=== PATIENT | female | born 1950 | race Caucasian/White ===

== ENCOUNTER 2016-11-25 11:27 | Outpatient (CLI) | payer MEDICAID, MEDICARE ==
[2016-11-25 20:23] LABS: ALBUMIN/GLOBULIN RATIO 1.6 (1.0-2.2); BILIRUBIN,TOTAL 1.3 mg/dL (0.2-1.0); BUN - BLOOD UREA NITROGEN 21 mg/dL (6-20); CALCIUM 9.4 mg/dL (8.5-10.3); CARBON DIOXIDE - CO2 27 mmol/L (21-32); CHLORIDE 103 mmol/L (101-111); CHOLESTEROL 278 mg/dL; CREATININE 0.8 mg/dL (0.4-1.0); GFR - MDRD 72 (>89); GLUCOSE 100 mg/dL (70-100); HDL CHOLESTEROL 56 mg/dL; LDL/HDL RATIO 3.7 (<4.4); POTASSIUM 4.2 mmol/L (3.5-5.0); SODIUM 139 mmol/L (135-145); TOTAL PROTEIN 7.1 g/dL (6.7-8.2); TRIGLYCERIDES 74 mg/dL; VLDL CHOLESTEROL 15 mg/dL
== END 2016-11-25 11:28 | disposition home or self-care (01) ==
LOC: LAB.N 11:27
PROVIDERS: ATTEND Family Medicine
DX: E78.5 Hyperlipidemia, unspecified (principal)
CPT/HCPCS: 36415; 80053; 80061

== ENCOUNTER 2016-12-23 16:22 | Outpatient (CLI) | payer MEDICARE, OTHER ==
--- NOTE | 2016-12-24 01:27 | Ultrasound Report ---
EXAM: ANKLE-BRACHIAL INDEX EXAM DATE: 12/23/2016 05:44 PM. CLINICAL HISTORY: Nicotine dependent/cold feet. COMPARISON: None. TECHNIQUE: Ankle-brachial index calculated. FINDINGS: Right and left brachial pressures are 127 and 111 respectively. Right and left posterior tibial pressures are 124 and 129 respectively. Right and left ankle-brachial index is 0.98 and 1.16. IMPRESSION: 1. Right ankle-brachial index of 0.98. 2. Left ankle-brachial index of 1.16. [facility] Referring Provider Line: [phone] SITE ID: [id number]
--- NOTE | 2016-12-26 09:10 | CT Report ---
EXAM CT LUNG SCREEN EXAM DATE: 12/23/2016 04:52 PM. HISTORY: 66-year-old smoker. Nicotine dependent. Cold feet. COMPARISON: None. TECHNIQUE: CT examination of the entire thorax without contrast was performed using low-dose techniqu e. Thin section coronal, axial, sagittal and MIP axial images were obtained. In accordance with CT protocol optimization, one or more of the following dose reduction techniques w ere utilized for this exam: automated exposure control, adjustment of mA and/or KV based on patient s ize, or use of iterative reconstructive technique. FINDINGS: Nodules: Right upper lobe: None. Right middle lobe: None. Right lower lobe: None. Left upper lobe: None. Left lower lobe: None. Emphysema: Mild emphysematous changes. Pleura: Unremarkable. Aorta: Normal in caliber. Minimal calcified atheromatous plaque. Mediastinum: The visualized thyroid gland is unremarkable. No enlarged mediastinal or hilar lymph nod es. Heart size is normal. Coronary Calcifications: Mild to moderate degree of calcified coronary artery plaque. Other Findings: Linear bibasilar scar/atelectasis. Included portions of the liver, gallbladder, spleen, adrenals, pancreas, and kidneys are unremarkable . Abdominal aortic calcified atheromatous plaque. Degenerative changes of the thoracic spine. Dextroscoliosis of the thoracic spine. IMPRESSION: Lung-RADS ASSESSMENT CATEGORY: 1 - negative Probability of malignancy: Less than 1%. RECOMMENDATION: Continued annual screening with low-dose CT in 12 months. [facility] Referring Provider Line: [phone] SITE ID: [id number]
== END 2016-12-23 16:23 | disposition home or self-care (01) ==
LOC: DI 16:22
PROVIDERS: ATTEND Physician Assistant Medical
DX: Z12.2 Encounter for screening for malignant neoplasm of respiratory organs (principal); R68.89 Other general symptoms and signs; F17.210 Nicotine dependence, cigarettes, uncomplicated
CPT/HCPCS: 93922; G0297

== ENCOUNTER 2016-12-26 12:49 | Outpatient (CLI) | payer MEDICARE ==
--- NOTE | 2016-12-27 17:54 | Mammography Report ---
DIGITAL SCREENING MAMMOGRAM: 12/26/2016 CLINICAL INDICATION: A 66-year-old for screening. COMPARISON: 11/2015, 11/2001, 05/1998, 07/1994. TECHNIQUE: Routine CC and MLO projections were obtained of the breasts. FINDINGS: Scattered fibroglandular tissue is present within the breasts. There are no dominant gilbert s, suspicious microcalcifications, or secondary signs of malignancy. In comparison to the previous st udies, there are no significant changes. ASSESSMENT: NO MAMMOGRAPHIC EVIDENCE OF MALIGNANCY. NO SIGNIFICANT INTERVAL CHANGES. RECOMMENDATION: Screening mammography is recommended annually. BI-RADS category 1 - negative. STANDARD QUALIFYING STATEMENTS 1. This examination was reviewed with the aid of Computed-Aided Detection (CAD). 2. A negative or benign imaging report should not delay biopsy if clinically suspicious findings are present. Consider surgical consultation if warranted. More than 5% of cancers are not identified by i maging. 3. Dense breasts may obscure an underlying neoplasm. JOB #: [id number] EXT JOB #:[id number]
== END 2016-12-26 12:50 | disposition home or self-care (01) ==
LOC: DI 12:49
PROVIDERS: ATTEND Physician Assistant Medical
DX: Z12.31 Encounter for screening mammogram for malignant neoplasm of breast (principal)
CPT/HCPCS: 77067

== ENCOUNTER 2017-03-09 10:18 | Outpatient (CLI) | payer MEDICARE, OTHER ==
[2017-03-09 14:05] LABS: BASOPHILS % (AUTO) 0.7 %; EOSINOPHILS # (AUTO) 0.1 10^3/uL (0.0-0.7); EOSINOPHILS % (AUTO) 2.6 %; HCT - HEMATOCRIT 41.9 % (37.0-47.0); HGB - HEMOGLOBIN 14.4 g/dL (12.0-16.0); LYMPHOCYTES # (AUTO) 2.4 10^3/uL (1.5-3.5); LYMPHOCYTES % (AUTO) 42.3 %; MEAN CORPUSCULAR HEMOGLOBIN 32.1 pg (27.0-31.0); MEAN CORPUSCULAR HGB CONC 34.3 g/dL (32.0-36.0); MEAN CORPUSCULAR VOLUME 93.6 fL (81.0-99.0); MONOCYTES # (AUTO) 0.3 10^3/uL (0.0-1.0); MONOCYTES % (AUTO) 5.9 %; NEUTROPHILS # (AUTO) 2.8 10^3/uL (1.5-6.6); NEUTROPHILS % (AUTO) 48.5 %; RED BLOOD COUNT 4.48 10^6/uL (4.20-5.40); RED CELL DISTRIBUTION WIDTH 12.9 % (12.0-15.0); UNCORRECTED WHITE BLOOD COUNT 5.7 x10^3/uL; WHITE BLOOD COUNT 5.7 x10^3/uL (4.8-10.8)
[2017-03-09 14:49] LABS: ALBUMIN/GLOBULIN RATIO 1.3 (1.0-2.2); BILIRUBIN,TOTAL 1.4 mg/dL (0.2-1.0); BUN - BLOOD UREA NITROGEN 16 mg/dL (6-20); CALCIUM 9.1 mg/dL (8.5-10.3); CARBON DIOXIDE - CO2 29 mmol/L (21-32); CHLORIDE 103 mmol/L (101-111); CHOLESTEROL 232 mg/dL; CREATININE 0.9 mg/dL (0.4-1.0); GFR - MDRD 63 (>89); GLUCOSE 106 mg/dL (70-100); HDL CHOLESTEROL 78 mg/dL; LDL/HDL RATIO 1.8 (<4.4); POTASSIUM 4.1 mmol/L (3.5-5.0); SODIUM 137 mmol/L (135-145); TOTAL PROTEIN 7.5 g/dL (6.7-8.2); TRIGLYCERIDES 67 mg/dL; VLDL CHOLESTEROL 13 mg/dL
== END 2017-03-09 10:19 | disposition home or self-care (01) ==
LOC: LAB.WCP 10:18
PROVIDERS: ATTEND Physician Assistant Medical
DX: E78.5 Hyperlipidemia, unspecified (principal); K64.4 Residual hemorrhoidal skin tags
CPT/HCPCS: 36415; 80053; 80061; 85025

== ENCOUNTER 2017-06-19 10:32 | Outpatient (CLI) | payer MEDICARE, OTHER ==
[2017-06-19 12:46] LABS: CHOLESTEROL 178 mg/dL; HDL CHOLESTEROL 60 mg/dL; LDL CHOLESTEROL,CALCULATED 106 mg/dL; LDL/HDL RATIO 1.8 (<4.4); VLDL CHOLESTEROL 12 mg/dL
== END 2017-06-19 10:33 | disposition home or self-care (01) ==
LOC: LAB.WCP 10:32
PROVIDERS: ATTEND Physician Assistant Medical
DX: E78.5 Hyperlipidemia, unspecified (principal)
CPT/HCPCS: 36415; 80061; 83721

== ENCOUNTER 2018-03-30 09:58 | Outpatient (CLI) | payer MEDICARE, OTHER ==
[2018-03-30 13:30] LABS: BASOPHILS % (AUTO) 0.7 %; EOSINOPHILS # (AUTO) 0.1 10^3/uL (0.0-0.7); EOSINOPHILS % (AUTO) 2.3 %; HGB - HEMOGLOBIN 14.1 g/dL (12.0-16.0); LYMPHOCYTES # (AUTO) 2.2 10^3/uL (1.5-3.5); LYMPHOCYTES % (AUTO) 36.8 %; MEAN CORPUSCULAR HEMOGLOBIN 31.7 pg (27.0-31.0); MEAN CORPUSCULAR HGB CONC 33.9 g/dL (32.0-36.0); MEAN CORPUSCULAR VOLUME 93.5 fL (81.0-99.0); MONOCYTES # (AUTO) 0.5 10^3/uL (0.0-1.0); MONOCYTES % (AUTO) 8.5 %; NEUTROPHILS # (AUTO) 3.1 10^3/uL (1.5-6.6); NEUTROPHILS % (AUTO) 51.7 %; PLT - PLATELET COUNT 212 10^3/uL (130-450); RED BLOOD COUNT 4.44 10^6/uL (4.20-5.40); RED CELL DISTRIBUTION WIDTH 12.7 % (12.0-15.0); WHITE BLOOD COUNT 5.9 x10^3/uL (4.8-10.8)
[2018-03-30 13:44] LABS: HB2 TOTAL 15.5 g/dL; HEMOGLOBIN A1C 0.6 g/dL; HEMOGLOBIN A1C % 5.7 % (4.6-6.2)
[2018-03-30 14:02] LABS: ALBUMIN 4.2 g/dL (3.2-5.5); ALBUMIN/GLOBULIN RATIO 1.4 (1.0-2.2); ALKALINE PHOSPHATASE 61 IU/L (42-121); ALT ALANINE AMINOTRANSFERASE 16 IU/L (10-60); AST ASPARTATE AMINOTRANSFERASE 21 IU/L (10-42); BILIRUBIN,TOTAL 2.1 mg/dL (0.2-1.0); BUN - BLOOD UREA NITROGEN 13 mg/dL (6-20); CALCIUM 9.2 mg/dL (8.5-10.3); CARBON DIOXIDE - CO2 28 mmol/L (21-32); CHLORIDE 104 mmol/L (101-111); CHOL/HDL RATIO 3.3 (<4.4); CHOLESTEROL 192 mg/dL; CREATININE 0.9 mg/dL (0.4-1.0); GFR - MDRD 63 (>89); GLUCOSE 105 mg/dL (70-100); HDL CHOLESTEROL 58 mg/dL; LDL CHOLESTEROL,CALCULATED 121 mg/dL; LDL/HDL RATIO 2.1 (<4.4); SODIUM 140 mmol/L (135-145); TOTAL PROTEIN 7.2 g/dL (6.7-8.2); VLDL CHOLESTEROL 13 mg/dL
== END 2018-03-30 23:59 | disposition home or self-care (01) ==
LOC: LAB.WCP 09:58
PROVIDERS: ATTEND Physician Assistant Medical
DX: E78.5 Hyperlipidemia, unspecified (principal); R73.9 Hyperglycemia, unspecified; L20.9 Atopic dermatitis, unspecified
CPT/HCPCS: 36415; 80053; 80061; 83036; 83721; 85025

== ENCOUNTER 2018-03-31 12:46 | Outpatient (CLI) | payer MEDICARE, OTHER ==
--- NOTE | 2018-04-01 17:31 | CT Report ---
Reason: PERSONAL HISTORY OF NICOTINE DEPENDENCE Procedure Date: 03/31/2018 Accession Number: [id number] / [id number] Procedure: CT - Chest/Lung Screen Low Dose W/O CPT Code: FULL RESULT: EXAM CT LUNG SCREEN EXAM DATE: 03/31/2018 01:14 PM. HISTORY: 67-year-old patient with 30-year nicotine dependence. Currently smoking: Yes. . COMPARISON: CHEST SCREEN LOW DOSE W/O 12/23/2016 4:48 PM. TECHNIQUE: CT examination of the entire thorax without contrast was performed using low-dose technique. Thin section coronal, axial, sagittal and MIP axial images were obtained. In accordance with CT protocol optimization, one or more of the following dose reduction techniques were utilized for this exam: automated exposure control, adjustment of mA and/or KV based on patient size, or use of iterative reconstructive technique. FINDINGS: Nodules: Right upper lobe: None. Right middle lobe: None. Right lower lobe: None. Left upper lobe: Stable 4 x 2 mm nodular opacity seen in association with the inferior major fissure (5/117), probably perifissural lymph node. Left lower lobe: None. Emphysema: Mild apical emphysematous changes. Pleura: Unremarkable. Aorta: No aneurysm. Mild scattered atherosclerotic calcification. Mediastinum: Unremarkable. Coronary calcifications: Mild-moderate. Other pulmonary findings: Linear basal atelectasis or scarring. Other extrapulmonary findings: None. IMPRESSION: Lung-RADS ASSESSMENT CATEGORY: 2 - Benign appearance or behavior. Probability of malignancy: <1% RECOMMENDATION: Continue annual screening with low-dose chest CT in 12 months. [facility]
== END 2018-03-31 12:47 | disposition home or self-care (01) ==
LOC: DI 12:46
PROVIDERS: ATTEND Physician Assistant Medical
DX: Z12.2 Encounter for screening for malignant neoplasm of respiratory organs (principal); F17.210 Nicotine dependence, cigarettes, uncomplicated

== ENCOUNTER 2018-04-20 16:48 | Outpatient (CLI) | payer MEDICARE, OTHER ==
--- NOTE | 2018-04-23 08:34 | Mammography Report ---
Reason: SCREENING MAMMO Procedure Date: 04/20/2018 Accession Number: [id number] / [id number] Procedure: MARCELA - Screening Mammo w/Gilles CPT Code: FULL RESULT: EXAM: Screening Mammo w/Gilles DATE: 04/20/2018 5:14 PM CLINICAL HISTORY: Screening encounter. No reported risk factors. TECHNIQUE: Bilateral CC and MLO views were obtained. COMPARISON: 12/26/2016 through 12/15/2015. FINDINGS: The breasts demonstrate scattered fibroglandular densities bilaterally. No suspicious masses, clustered microcalcifications, or regions of architectural distortion are identified. IMPRESSION: Negative examination RECOMMENDATION: Routine annual screening unless otherwise clinically indicated. BIRADS CATEGORY 1: Negative STANDARD QUALIFYING STATEMENTS: 1. This examination was not reviewed with the aid of Computer-Aided Detection (CAD). 2. A negative or benign imaging report should not preclude biopsy if clinically suspicious findings are present. 3. Dense breasts may obscure an underlying neoplasm. 4. This examination was reviewed with the aid of 3D breast imaging (tomosynthesis).
== END 2018-04-20 16:49 | disposition home or self-care (01) ==
LOC: DI 16:48
DX: Z12.31 Encounter for screening mammogram for malignant neoplasm of breast (principal)
CPT/HCPCS: 77063; 77067

== ENCOUNTER 2018-09-13 08:00 | Outpatient (CLI) | payer MEDICARE, OTHER ==
[2018-09-13 23:34] LABS: TRICHOMONAS VAGINALIS DNA NEGATIVE (NEGATIVE)
== END 2018-09-13 23:59 | disposition home or self-care (01) ==
LOC: LAB.R 08:00
PROVIDERS: ATTEND Physician Assistant Medical
DX: N76.0 Acute vaginitis (principal)
CPT/HCPCS: 87491; 87591; 87661

== ENCOUNTER 2018-09-13 08:00 | Outpatient (CLI) | payer MEDICARE, OTHER | END 2018-09-13 23:59 | disposition home or self-care (01) | LOC: LAB.R 08:00 | PROVIDERS: ATTEND Physician Assistant Medical | DX: N76.0 Acute vaginitis (principal) | CPT/HCPCS: 87086 ==

== ENCOUNTER 2018-09-15 13:21 | Outpatient (CLI) | payer MEDICARE, OTHER ==
--- NOTE | 2018-09-15 16:13 | XRAY Report ---
Reason: HIP PAIN, RIGHT Procedure Date: 09/15/2018 Accession Number: [id number] / [id number] Procedure: XR - Hip w/Pelvis 2-3V RT CPT Code: FULL RESULT: EXAM: RIGHT HIP RADIOGRAPHY EXAM DATE: 09/15/2018 01:23 PM. CLINICAL HISTORY: HIP PAIN, RIGHT. COMPARISON: None. TECHNIQUE: 2 views. FINDINGS: Bones: Normal. No fractures or bone lesion. Joints: No dislocation noted. Minimal degenerative changes present. Soft Tissues: Normal. No soft tissue swelling. IMPRESSION: Minimal degenerative changes without acute fracture. [facility]
== END 2018-09-15 13:22 | disposition home or self-care (01) ==
LOC: DI 13:21
PROVIDERS: ATTEND Physician Assistant Medical
DX: M16.11 Unilateral primary osteoarthritis, right hip (principal)

== ENCOUNTER 2018-09-18 08:00 | Outpatient (CLI) | payer MEDICARE, OTHER ==
[2018-09-18 21:58] LABS: CANDIDA GROUP DNA NEGATIVE (NEGATIVE); CANDIDA KRUSEI DNA NEGATIVE (NEGATIVE); TRICHOMONAS VAGINALIS DNA NEGATIVE (NEGATIVE)
== END 2018-09-18 08:01 | disposition home or self-care (01) ==
LOC: LAB.R 08:00
PROVIDERS: ATTEND Physician Assistant Medical
DX: N76.0 Acute vaginitis (principal)
CPT/HCPCS: 87661; 87801

== ENCOUNTER 2019-04-30 12:17 | Outpatient (CLI) | payer MEDICARE, OTHER ==
--- NOTE | 2019-05-01 14:46 | CT Report ---
Reason: TOBACCO USE Procedure Date: 04/30/2019 Accession Number: [id number] / [id number] Procedure: CT - Low Dose Lung Cancer Screen CPT Code: Final Report FULL RESULT: EXAM CT LUNG SCREEN EXAM DATE: 04/30/2019 01:49 PM. HISTORY: 68-year-old patient with [id number] smoking history. COMPARISON: CHEST SCREEN LOW DOSE W/O 03/31/2018 1:01 PM. TECHNIQUE: CT examination of the entire thorax without contrast was performed using low-dose technique. Thin section coronal, axial, sagittal and MIP axial images were obtained. In accordance with CT protocol optimization, one or more of the following dose reduction techniques were utilized for this exam: automated exposure control, adjustment of mA and/or KV based on patient size, or use of iterative reconstructive technique. FINDINGS: Nodules: Right upper lobe: None. Right middle lobe: None. Right lower lobe: Tiny calcified granuloma in the right lower lobe.. Left upper lobe: 2 mm endobronchial nodule (4/50), likely focal mucus plugging. Stable perifissural 3 mm nodular opacity in the lingula (4/115), highly likely benign such as an intrapulmonary lymph node. Left lower lobe: None. Emphysema: Mild apical emphysematous changes. Pleura: Unremarkable. Aorta: Normal caliber. Mediastinum: Unremarkable. Coronary calcifications: Three-vessel coronary artery calcifications again seen. Other pulmonary findings: None. Other extrapulmonary findings: 4 mm calcified gallstones. IMPRESSION: Lung-RADS ASSESSMENT CATEGORY: 2 - benign appearance or behavior. Probability of malignancy: <1% RECOMMENDATION: Continue annual screening with low-dose chest CT. [facility]
== END 2019-04-30 12:18 | disposition home or self-care (01) ==
LOC: DI 12:17
PROVIDERS: ATTEND Physician Assistant Medical
DX: Z12.2 Encounter for screening for malignant neoplasm of respiratory organs (principal); Z87.891 Personal history of nicotine dependence

== ENCOUNTER 2019-04-30 12:18 | Outpatient (CLI) | payer MEDICARE, OTHER ==
--- NOTE | 2019-05-01 13:46 | Mammography Report ---
Reason: ROUTINE MAMMO Procedure Date: 04/30/2019 Accession Number: [id number] / [id number] Procedure: MARCELA - Screening Mammo w/Gilles CPT Code: Final Report FULL RESULT: EXAM: Screening Mammo w/Gilles DATE: 04/30/2019 1:17 PM CLINICAL HISTORY: Routine screening TECHNIQUE: (B) - Bilateral CC and MLO views were obtained. COMPARISON: 04/20/2018, 01-10, 12/15/2015, 11/29/2001 PARENCHYMAL PATTERN: (A) - The breasts demonstrate scattered fibroglandular densities bilaterally. FINDINGS: No significant interval change. There are no suspicious masses, calcifications, or areas of distortion. IMPRESSION: Negative examination. BI-RADS category 1. RECOMMENDATION: (ANNUAL) - Recommend routine annual screening mammography. BI-RADS CATEGORY: (1) - Negative. STANDARD QUALIFYING STATEMENTS: 1. This examination was not reviewed with the aid of Computer-Aided Detection (CAD). 2. A negative or benign imaging report should not preclude biopsy if clinically suspicious findings are present. 3. Dense breasts may obscure an underlying neoplasm. 4. This examination was reviewed with the aid of 3D breast imaging (tomosynthesis).
== END 2019-04-30 12:19 | disposition home or self-care (01) ==
LOC: DI 12:18
DX: Z12.31 Encounter for screening mammogram for malignant neoplasm of breast (principal)
CPT/HCPCS: 77063; 77067

== ENCOUNTER 2019-05-21 14:53 | Outpatient (CLI) | payer MEDICARE, OTHER ==
[2019-05-21 15:08] LABS: BASOPHILS # (AUTO) 0.1 10^3/uL (0.0-0.1); BASOPHILS % (AUTO) 0.6 %; EOSINOPHILS # (AUTO) 0.1 10^3/uL (0.0-0.7); EOSINOPHILS % (AUTO) 1.5 %; HGB - HEMOGLOBIN 13.8 g/dL (12.0-16.0); LYMPHOCYTES # (AUTO) 2.8 10^3/uL (1.5-3.5); LYMPHOCYTES % (AUTO) 35.9 %; MEAN CORPUSCULAR HEMOGLOBIN 30.1 pg (27.0-31.0); MEAN CORPUSCULAR HGB CONC 32.2 g/dL (32.0-36.0); MEAN CORPUSCULAR VOLUME 93.5 fL (81.0-99.0); MONOCYTES # (AUTO) 0.5 10^3/uL (0.0-1.0); MONOCYTES % (AUTO) 6.1 %; NEUTROPHILS # (AUTO) 4.4 10^3/uL (1.5-6.6); NEUTROPHILS % (AUTO) 55.6 %; PLT - PLATELET COUNT 243 10^3/uL (130-450); RED BLOOD COUNT 4.59 10^6/uL (4.20-5.40); RED CELL DISTRIBUTION WIDTH 12.5 % (12.0-15.0); WHITE BLOOD COUNT 7.9 x10^3/uL (4.8-10.8)
[2019-05-21 15:17] LABS: ALBUMIN 4.3 g/dL (3.2-5.5); ALBUMIN/GLOBULIN RATIO 1.3 (1.0-2.2); CALCIUM 9.4 mg/dL (8.5-10.3); CREATININE 0.8 mg/dL (0.4-1.0); TOTAL PROTEIN 7.6 g/dL (6.7-8.2)
[2019-05-21 15:23] LABS: CREATINE KINASE MB 1.3 ng/mL (0.6-6.3)
== END 2019-05-21 14:54 | disposition home or self-care (01) ==
LOC: LAB 14:53
PROVIDERS: ATTEND Physician Assistant Medical
DX: R07.9 Chest pain, unspecified (principal)
CPT/HCPCS: 36415; 80053; 82553; 84484; 85025

== ENCOUNTER 2019-08-16 10:10 | Outpatient (CLI) | payer MEDICARE, OTHER ==
[2019-08-16 14:30] LABS: ALBUMIN 4.1 g/dL (3.2-5.5); ALBUMIN/GLOBULIN RATIO 1.4 (1.0-2.2); ALKALINE PHOSPHATASE 55 IU/L (42-121); ALT ALANINE AMINOTRANSFERASE 18 IU/L (10-60); AST ASPARTATE AMINOTRANSFERASE 22 IU/L (10-42); BILIRUBIN,TOTAL 1.5 mg/dL (0.2-1.0); BUN - BLOOD UREA NITROGEN 22 mg/dL (6-20); CALCIUM 9.1 mg/dL (8.5-10.3); CARBON DIOXIDE - CO2 28 mmol/L (21-32); CHLORIDE 106 mmol/L (101-111); CHOL/HDL RATIO 2.4 (<4.4); CHOLESTEROL 168 mg/dL; CREATININE 0.8 mg/dL (0.4-1.0); GLUCOSE 105 mg/dL (70-100); HDL CHOLESTEROL 69 mg/dL; LDL CHOLESTEROL,CALCULATED 90 mg/dL; LDL/HDL RATIO 1.3 (<4.4); SODIUM 140 mmol/L (135-145); TOTAL PROTEIN 7.1 g/dL (6.7-8.2); VLDL CHOLESTEROL 9 mg/dL
[2019-08-16 14:33] LABS: HB2 TOTAL 14.7 g/dL; HEMOGLOBIN A1C 0.54 g/dL; HEMOGLOBIN A1C % 5.5 % (4.6-6.2)
== END 2019-08-16 23:59 | disposition home or self-care (01) ==
LOC: LAB.WCP 10:10
PROVIDERS: ATTEND Physician Assistant Medical
DX: E78.5 Hyperlipidemia, unspecified (principal); R73.9 Hyperglycemia, unspecified
CPT/HCPCS: 36415; 80053; 80061; 83036; 83721; 84443

== ENCOUNTER 2020-01-08 15:20 | Outpatient (CLI) | payer MEDICARE, OTHER ==
[2020-01-08 18:27] LABS: BASOPHILS % (AUTO) 0.4 %; EOSINOPHILS # (AUTO) 0.1 10^3/uL (0.0-0.7); EOSINOPHILS % (AUTO) 1.7 %; HGB - HEMOGLOBIN 13.9 g/dL (12.0-16.0); LYMPHOCYTES # (AUTO) 2.6 10^3/uL (1.5-3.5); LYMPHOCYTES % (AUTO) 37.9 %; MEAN CORPUSCULAR HEMOGLOBIN 31.4 pg (27.0-31.0); MEAN CORPUSCULAR HGB CONC 32.5 g/dL (32.0-36.0); MEAN CORPUSCULAR VOLUME 96.6 fL (81.0-99.0); MEAN PLATELET VOLUME 11.1 fL (7.9-10.8); MONOCYTES # (AUTO) 0.5 10^3/uL (0.0-1.0); MONOCYTES % (AUTO) 6.9 %; NEUTROPHILS # (AUTO) 3.7 10^3/uL (1.5-6.6); NEUTROPHILS % (AUTO) 52.8 %; PLT - PLATELET COUNT 203 10^3/uL (130-450); RED BLOOD COUNT 4.43 10^6/uL (4.20-5.40); RED CELL DISTRIBUTION WIDTH 12.3 % (12.0-15.0)
[2020-01-08 19:15] LABS: FERRITIN 99.5 ng/mL (11.0-306.8)
== END 2020-01-08 23:59 | disposition home or self-care (01) ==
LOC: LAB.WCP 15:20
PROVIDERS: ATTEND Physician Assistant Medical
DX: L65.9 Nonscarring hair loss, unspecified (principal)
CPT/HCPCS: 36415; 82728; 84443; 85025

== ENCOUNTER 2020-05-20 15:32 | Outpatient (CLI) | payer MEDICARE, OTHER ==
--- NOTE | 2020-05-21 10:15 | Mammography Report ---
BILATERAL DIGITAL SCREENING MAMMOGRAM 3D/2D: 05/20/2020 CLINICAL: Routine screening. Comparison is made to exams dated: 04/30/2019 mammogram, 04/20/2018 mammogram, 12/26/2016 mammogram, and 12/15/2015 mammogram - [facility]. There are scattered fibroglandular elements in both breasts. No significant masses, calcifications, or other findings are seen in either breast. There has been no significant interval change. IMPRESSION: NEGATIVE There is no mammographic evidence of malignancy. A 1 year screening mammogram is recommended. This exam was interpreted at Station ID: [id number]. NOTE: For mammograms, a report in lay terms will be sent to the patient. Approximately 15% of breast malignancies will not be visualized mammographically. In the management of a palpable breast mass, a negative mammogram must not discourage biopsy of a clinically suspicious lesion. Electronically Signed By: Melida russell/penrad:05/20/2020 17:28:21 ACR BI-RADS Category 1: Negative 3341F PARENCHYMAL PATTERN: (A) - The breast(s) demonstrate(s) scattered fibroglandular densities. BI-RADS CATEGORY: (1) - 1 RECOMMENDATION: (ANNUAL) - Recommend routine annual screening mammography. [id number] 1 year screening LATERALITY: (B)
== END 2020-05-20 15:33 | disposition home or self-care (01) ==
LOC: DI.N 15:32
DX: Z12.31 Encounter for screening mammogram for malignant neoplasm of breast (principal)

== ENCOUNTER 2020-08-01 11:11 | Outpatient (CLI) | payer MEDICARE, OTHER ==
--- NOTE | 2020-08-01 13:03 | Ultrasound Report ---
PROCEDURE: Aorta Screening INDICATIONS: TOBACCO USE TECHNIQUE: Real time scanning was performed of the aorta and iliac arteries, with image documentatio n. COMPARISON: None FINDINGS: Aorta: Proximal aortic diameter measures 2.5 x 2.5 cm. Mid-aorta measures 2.1 x 1.8 cm. Distal aor tic diameter is 1.4 x 1.3 cm. Iliac arteries: Right common iliac artery measures 0.9 x 0.9 cm. Left common iliac artery measures 1 x 0.9 cm. IMPRESSION: Negative for aneurysm. Reviewed by: Constantine Hendricks MD on 08/01/2020 12:02 PM HUNTER Approved by: Constantine Hendricks MD on 08/01/2020 12:02 PM HUNTER Station ID: [id number]
== END 2020-08-01 11:12 | disposition home or self-care (01) ==
LOC: DI 11:11
PROVIDERS: ATTEND Physician Assistant Medical
DX: Z13.6 Encounter for screening for cardiovascular disorders (principal); Z72.0 Tobacco use

== ENCOUNTER 2020-08-21 12:13 | Outpatient (CLI) | payer MEDICARE, OTHER ==
--- NOTE | 2020-08-21 13:34 | CT Report ---
PROCEDURE: Low Dose Lung Cancer Screen INDICATIONS: TOBACCO USE TECHNIQUE: Noncontrast low-dose 5 mm thick sections acquired from the pulmonary apices to the posterior costophr enic angles. 7 mm thick coronal and sagittal MIP reformats were then acquired. For radiation dose r eduction, the following was used: automated exposure control, adjustment of mA and/or kV according t o patient size. COMPARISON: 04/30/2019. FINDINGS: Image quality: Excellent. Lungs and pleura: 3 mm solid left lingular nodule adjacent to the oblique fissure remains unchanged, series 4 image 224 . 2 mm calcified granuloma in the anterolateral right lower lobe is also unchanged series 4 image 219. No new pulmonary nodule is seen. Mild scattered scarring/atelectasis in periphery of bilateral lung f ields are noted. No pleural effusion or pneumothorax. Central and peripheral airway is patent. Previo usly described 2 mm endobronchial nodule in left upper lobe is no longer seen. Mediastinum: Heart size is normal. No pericardial effusion. No mediastinal adenopathy by size crit eria. Mild atherosclerotic calcifications are seen in and coronary vessels and thoracic aorta. Thora cic aorta and central pulmonary arteries are normal in size. Esophagus is normal in caliber. No hia geovani hernia. Bones and chest wall: No suspicious bony lesions. No vertebral body compression fractures. No axil anders or supraclavicular adenopathy by size criteria. The thyroid is normal in size and there are no incidental findings. Abdomen: Visualized upper abdomen solid organs and bowel loops appear normal in the absence of contr ast. IMPRESSION: 1. Stable left lingular solid nodule measures 3 mm in size. Stable calcified granuloma in right lower lobe. No new pulmonary nodule is seen. 2. Mild atherosclerotic disease. Lung RADS category: 2, benign findings. Annual low dose chest CT follow-up is recommended. Reviewed by: Rolando Harris MD on 08/21/2020 1:32 PM PDT Approved by: Rolando Harris MD on 08/21/2020 1:32 PM PDT Station ID: [id number]
== END 2020-08-21 12:14 | disposition home or self-care (01) ==
LOC: DI 12:13
PROVIDERS: ATTEND Physician Assistant Medical
DX: Z12.2 Encounter for screening for malignant neoplasm of respiratory organs (principal); Z87.891 Personal history of nicotine dependence; R91.1 Solitary pulmonary nodule; J84.10 Pulmonary fibrosis, unspecified

== ENCOUNTER 2020-08-27 09:31 | Outpatient (CLI) | payer MEDICARE, OTHER ==
[2020-08-27 10:40] LABS: ALBUMIN 4.2 g/dL (3.2-5.5); ALBUMIN/GLOBULIN RATIO 1.4 (1.0-2.2); ALKALINE PHOSPHATASE 55 IU/L (42-121); ALT ALANINE AMINOTRANSFERASE 18 IU/L (10-60); AST ASPARTATE AMINOTRANSFERASE 20 IU/L (10-42); BILIRUBIN,TOTAL 1.6 mg/dL (0.2-1.0); BUN - BLOOD UREA NITROGEN 22 mg/dL (6-20); CARBON DIOXIDE - CO2 27 mmol/L (21-32); CHLORIDE 103 mmol/L (101-111); CHOLESTEROL 215 mg/dL; CREATININE 0.7 mg/dL (0.4-1.0); GFR - MDRD 83 (>89); GLUCOSE 104 mg/dL (70-100); HDL CHOLESTEROL 71 mg/dL; LDL CHOLESTEROL,CALCULATED 135 mg/dL; LDL/HDL RATIO 1.9 (<4.4); POTASSIUM 4.2 mmol/L (3.5-5.0); SODIUM 137 mmol/L (135-145); TOTAL PROTEIN 7.2 g/dL (6.7-8.2); TRIGLYCERIDES 47 mg/dL; VLDL CHOLESTEROL 9 mg/dL
== END 2020-08-27 09:32 | disposition home or self-care (01) ==
LOC: LAB 09:31
PROVIDERS: ATTEND Physician Assistant Medical
DX: E78.5 Hyperlipidemia, unspecified (principal)
CPT/HCPCS: 36415; 80053; 80061; 83721

== ENCOUNTER 2021-06-11 09:14 | Outpatient (CLI) | payer MEDICARE ==
[2021-06-11 09:37] LABS: BASOPHILS # (AUTO) 0.1 10^3/uL (0.0-0.1); BASOPHILS % (AUTO) 0.9 %; EOSINOPHILS # (AUTO) 0.1 10^3/uL (0.0-0.7); EOSINOPHILS % (AUTO) 2.2 %; HCT - HEMATOCRIT 42.6 % (37.0-47.0); HGB - HEMOGLOBIN 14.3 g/dL (12.0-16.0); LYMPHOCYTES # (AUTO) 2.1 10^3/uL (1.5-3.5); MEAN CORPUSCULAR HEMOGLOBIN 31.6 pg (27.0-31.0); MEAN CORPUSCULAR HGB CONC 33.6 g/dL (32.0-36.0); MONOCYTES # (AUTO) 0.3 10^3/uL (0.0-1.0); MONOCYTES % (AUTO) 6.2 %; NEUTROPHILS # (AUTO) 2.9 10^3/uL (1.5-6.6); NEUTROPHILS % (AUTO) 52.5 %; PLT - PLATELET COUNT 200 10^3/uL (130-450); RED BLOOD COUNT 4.53 10^6/uL (4.20-5.40); RED CELL DISTRIBUTION WIDTH 12.5 % (12.0-15.0); WHITE BLOOD COUNT 5.5 x10^3/uL (4.8-10.8)
[2021-06-11 09:58] LABS: ALBUMIN/GLOBULIN RATIO 1.3 (1.0-2.2); ALKALINE PHOSPHATASE 64 IU/L (42-121); ALT ALANINE AMINOTRANSFERASE 17 IU/L (10-60); AST ASPARTATE AMINOTRANSFERASE 19 IU/L (10-42); BILIRUBIN,TOTAL 1.7 mg/dL (0.2-1.0); BUN - BLOOD UREA NITROGEN 17 mg/dL (6-20); CALCIUM 9.3 mg/dL (8.5-10.3); CARBON DIOXIDE - CO2 28 mmol/L (21-32); CHLORIDE 101 mmol/L (101-111); CHOLESTEROL 189 mg/dL; CREATININE 0.8 mg/dL (0.4-1.0); GFR - MDRD 71 (>89); GLUCOSE 106 mg/dL (70-100); HDL CHOLESTEROL 63 mg/dL; LDL CHOLESTEROL,CALCULATED 112 mg/dL; LDL/HDL RATIO 1.8 (<4.4); POTASSIUM 4.3 mmol/L (3.5-5.0); SODIUM 139 mmol/L (135-145); TRIGLYCERIDES 72 mg/dL; VLDL CHOLESTEROL 14 mg/dL
[2021-06-11 10:09] LABS: THYROID STIMULATING HORMONE 1.23 uIU/mL (0.34-5.60)
[2021-06-11 12:06] LABS: ESTIMATED AVERAGE GLUCOSE 120 mg/dL (70-100); HEMOGLOBIN A1c% 5.8 % (4.27-6.07)
== END 2021-06-11 09:15 | disposition home or self-care (01) ==
LOC: LAB 09:14
PROVIDERS: ATTEND Physician Assistant Medical
DX: E78.5 Hyperlipidemia, unspecified (principal); R73.9 Hyperglycemia, unspecified; Z13.29 Encounter for screening for other suspected endocrine disorder
CPT/HCPCS: 36415; 80053; 80061; 83036; 83721; 84443; 85025

== ENCOUNTER 2021-08-09 10:44 | Outpatient (CLI) | payer MEDICARE ==
--- NOTE | 2021-08-09 17:24 | DEXA Report ---
PROCEDURE: Dexa Spine and/or Hip INDICATIONS: CIGARETTE SMOKER, POST MENOPAUSAL TECHNIQUE: Dual energy x-ray absorptiometry (DXA) was performed on a SmartShoot System. Regions measur ed are the AP Spine, femoral neck, and if needed forearm. COMPARISON: None. FINDINGS: Lumbar Spine: Bone Mineral Density 0.967 g/cm/cm,T score -1.8. Left Hip: Bone Mineral Density 0.579 g/cm/cm,T score -3.4. Left Femoral Neck: Bone Mineral Density 0.608 g/cm/cm, T score -3.1. (T score greater or equal to -1.0: NORMAL) (T score from -1.1 to -2.4: OSTEOPENIA) (T score less than or equal to -2.5 to: OSTEOPOROSIS) Impression: Osteoporosis. Patients with diagnosis of osteoporosis or osteopenia should have regular bone mineral density assess ment. For those eligible for Medicare, routine testing is allowed once every 2 years. Testing frequ ency can be increased for patients who have rapidly progressing disease or for those who are receivin g medical therapy to restore bone mass. Reviewed by: Rolando Harris MD on 08/09/2021 5:23 PM PDT Approved by: Rolando Harris MD on 08/09/2021 5:23 PM PDT Station ID: [id number]
== END 2021-08-09 10:45 | disposition home or self-care (01) ==
LOC: DI 10:44
PROVIDERS: ATTEND Physician Assistant Medical
DX: M81.0 Age-related osteoporosis without current pathological fracture (principal); Z78.0 Asymptomatic menopausal state

== ENCOUNTER 2021-08-24 10:45 | Outpatient (CLI) | payer MEDICARE ==
--- NOTE | 2021-08-24 14:41 | CT Report ---
PROCEDURE: Low Dose Lung Cancer Screen INDICATIONS: CIGARETTE SMOKER, POST MENOPAUSAL TECHNIQUE: Noncontrast low-dose images were acquired from the pulmonary apices to the posterior costophrenic ang les. Multiplanar MIP reformats were then acquired. For radiation dose reduction, the following was used: automated exposure control, adjustment of mA and/or kV according to patient size. COMPARISON: CT lung cancer screening 08/21/2020. FINDINGS: Image quality: Excellent. Lungs and pleura: There are a few punctate pulmonary nodules measuring 0.2 cm. Small calcified granu angel in the right lower lobe. Minimal right basilar atelectasis or scarring. No pleural effusion. No pneumothorax. Airways are clear. Mediastinum: Heart size is normal. Moderate coronary artery calcifications. No pericardial effusion . No mediastinal adenopathy by size criteria. Thoracic aorta and central pulmonary arteries are nor mal in size. Esophagus is normal in caliber. No hiatal hernia. Bones and chest wall: No suspicious bony lesions. No vertebral body compression fractures. No axil anders or supraclavicular adenopathy by size criteria. The thyroid is normal in size and there are no incidental findings. Abdomen: Visualized upper abdomen solid organs and bowel loops appear normal in the absence of contr ast. Gallstones. IMPRESSION: No significant pulmonary nodules. Calcified granuloma and a few pulmonary nodules measuring 0.4 cm or less. Lung RADS 2. Recommend follow-up CT chest in 12 months. Reviewed by: Alessio Araujo MD on 08/24/2021 2:40 PM PDT Approved by: Alessio Araujo MD on 08/24/2021 2:40 PM PDT Station ID: [id number]
== END 2021-08-24 10:46 | disposition home or self-care (01) ==
LOC: DI 10:45
PROVIDERS: ATTEND Physician Assistant Medical
DX: Z12.2 Encounter for screening for malignant neoplasm of respiratory organs (principal); R91.8 Other nonspecific abnormal finding of lung field; F17.210 Nicotine dependence, cigarettes, uncomplicated

== ENCOUNTER 2021-09-18 00:22 | Emergency (ER) | payer MEDICARE ==
--- NOTE | 2021-09-18 02:31 | ED Physician Documentation ---
History of Present Illness - Stated complaint Stated Complaint: Hip pain, low back pain - Chief complaint Chief Complaint: Ext Problem - History obtained from History obtained from: Patient - History of Present Illness Timing: How many weeks ago (1) Pain level now: 5 Improved by: rest Worsened by: movement - Additonal information Additional information: patient c/o one week of left hip pain. Initially she had pain across lower back that began one week ago, gradual onset and without trauma or other inciting incident. The pain radiated to the left hip. She says the low back pain has gradually resolved but the left hip pain persists. She was prescribed metocarbamol 09/17 but has not had any improvement with this medication. Denies h/o similar symptoms Review of Systems Constitutional: denies: Fever, Chills, Sweats Cardiac: reports: Reviewed and negative Respiratory: reports: Reviewed and negative GI: denies: Abdominal Pain, Nausea, Vomiting, Constipation, Diarrhea : denies: Dysuria, Frequency Skin: denies: Rash Musculoskeletal: reports: Back pain (resolved), Joint pain. denies: Joint swelling, Pain with weight bearing PD PAST MEDICAL HISTORY - Past Medical History Cardiovascular: High cholesterol - Present Medications Home Medications: Ambulatory Orders Medication Instructions Recorded Confirmed HYDROcod/ACETAM 5/325 [[place] 5/325] 1 - 2 tablet PO Q6H PRN #14 tablet 09/18/21 - Allergies Allergies/Adverse Reactions: Allergies Allergy/AdvReac Type Severity Reaction Status Date / Time No Known Drug Allergies Allergy Verified 09/18/21 00:28 PD ED PE NORMAL - Vitals Vital signs reviewed: Yes - General General: Alert and oriented X 3, No acute distress, Well developed/nourished - Cardiac Cardiac: RRR, No murmur - Respiratory Respiratory: No respiratory distress, Clear bilaterally - Abdomen Abdomen: Soft, Non distended - Derm Derm: No rash - Extremities Extremities: No tenderness to palpate, Normal ROM s pain (FROM left hip. the left hip is without erythema, tenderness, rash, abnormal warmth to touch), No edema PD ED PE EXPANDED - Abdomen Abdomen: Tender to palpation, LLQ Results - Vitals Vitals: Oxygen O2 Source Room air - Labs Labs: Laboratory Tests 09/18/21 09/18/21 03:12 03:12 WBC 7.7 RBC 4.58 Hgb 14.4 Hct 42.5 MCV 92.8 MCH 31.4 H MCHC 33.9 RDW 12.5 Plt Count 230 MPV 10.2 Neut # (Auto) 5.1 Lymph # (Auto) 2.1 [place] # (Auto) 0.4 Eos # (Auto) 0.1 Baso # (Auto) 0.1 Absolute Nucleated RBC 0.00 Nucleated RBC % 0.0 Sodium 138 Potassium 3.6 Chloride 103 Carbon Dioxide 24 Anion Gap 11.0 BUN 29 H Creatinine 1.0 Estimated GFR (MDRD) 55 L Glucose 113 H Calcium 9.6 - Rads (name of study) CT A/P Radiology: Prelim report reviewed, See rad report PD MEDICAL DECISION MAKING - ED course Complexity details: reviewed results, re-evaluated patient, considered differential, d/w patient ED course: c/o left hip pain although she is found to have TTP LLQ on exam. CT A/P and blood tests are without diagnostic or concerning findings. There are no findings on exam to suggest infectious cause of her hip pain such as septic joint. She is given tramadol in ED and then take-home pack of vicodin with rx for vicodin electronically submitted to her pharmacy of choice. I am prescribing a short course of short-acting opioid pain medication for this patient. I have reviewed the patients [employer] and no concerning findings were noted. I have discussed that the opioids are for short term therapy only, and will not be refilled from the ED Departure - Departure Disposition: 01 Home, Self Care Clinical Impression: Hip pain, left Condition: Good Instructions: ED Joint Pain Follow-Up: Lolly Preciado PA-C [Primary Care Provider] - Prescriptions: HYDROcod/ACETAM 5/325 [[place] 5/325] 1 - 2 tablet PO Q6H PRN #14 tablet PRN Reason: Pain Comments: The cause of your back and hip pain is not apparent at this time; the tests performed tonight do not have any abnormalities that would suggest a cause of the pain. Follow up with your primary care provider , next available appointment. A prescription for hydrocodone/acteminophen (vicodin, narcotic pain medication) has been electronically submitted to [facility] pharmacy in [place]. I am prescribing a short course of narcotic pain medication for you. These are potentially dangerous and addictive medications that should be used carefully. These medications may constipate you. Take an jygm-mde-jbkrvjp stool softener (docusate) twice daily with plenty of water while taking these medications. If you go 24 hours without a bowel movement, take hxfc-jss-djwsyfq miralax, per package instructions. Do not drink or drive while taking these medications. If you received narcotic or sedating medications while in the emergency department, do not drive for 24 hours. Store this medication in a safe, secure place and out of reach of children. It is a violation of federal law to give or sell this medication to another person or to use in a manner other than prescribed. The ED will not refill narcotic prescriptions, including prescriptions lost or stolen. To dispose of unwanted medications: 1. [facility] at [address] in [place] has a medication drop box. They accept prescription medications (in pill form) Monday through Monday 9:00 a.m. to 5:00 p.m. 2. The [facility] [place] [employer] accepts prescription medications (in pill form only) for disposal year round. Call for more information. 3. Contact the [facility] for the next [facility] sponsored prescription drug collection event. , [phone], or [phone]; Discharge Date/Time: 09/18/21 05:50
[2021-09-18] MEDS ORDERED: traMADol 50 MG TABLET PO STA (02:48)
[2021-09-18 03:16] LABS: BASOPHILS # (AUTO) 0.1 10^3/uL (0.0-0.1); BASOPHILS % (AUTO) 0.6 %; EOSINOPHILS # (AUTO) 0.1 10^3/uL (0.0-0.7); EOSINOPHILS % (AUTO) 0.8 %; HCT - HEMATOCRIT 42.5 % (37.0-47.0); HGB - HEMOGLOBIN 14.4 g/dL (12.0-16.0); LYMPHOCYTES # (AUTO) 2.1 10^3/uL (1.5-3.5); LYMPHOCYTES % (AUTO) 27.4 %; MEAN CORPUSCULAR HEMOGLOBIN 31.4 pg (27.0-31.0); MEAN CORPUSCULAR HGB CONC 33.9 g/dL (32.0-36.0); MEAN CORPUSCULAR VOLUME 92.8 fL (81.0-99.0); MEAN PLATELET VOLUME 10.2 fL (7.9-10.8); MONOCYTES # (AUTO) 0.4 10^3/uL (0.0-1.0); MONOCYTES % (AUTO) 5.4 %; NEUTROPHILS # (AUTO) 5.1 10^3/uL (1.5-6.6); NEUTROPHILS % (AUTO) 65.5 %; PLT - PLATELET COUNT 230 10^3/uL (130-450); RED BLOOD COUNT 4.58 10^6/uL (4.20-5.40); RED CELL DISTRIBUTION WIDTH 12.5 % (12.0-15.0); WHITE BLOOD COUNT 7.7 x10^3/uL (4.8-10.8)
[2021-09-18 03:25] LABS: CALCIUM 9.6 mg/dL (8.5-10.3); POTASSIUM 3.6 mmol/L (3.5-5.0)
[2021-09-18 05:10] VITALS: BP 136/67
[2021-09-18] MEDS ORDERED: HYDROcod/ACET 5/325 Prepack 4 PO STA (05:41)
--- NOTE | 2021-09-18 08:01 | CT Report ---
PROCEDURE: Abdomen/Pelvis WO INDICATIONS: LLQ pain,tenderness TECHNIQUE: Noncontrast 5 mm thick sections acquired from the diaphragms to the symphysis. 5 mm coronal and sagi ttal reformats were then performed. For radiation dose reduction, the following was used: automated exposure control, adjustment of mA and/or kV according to patient size. COMPARISON: Limiting comparison a CT lungs. FINDINGS: Image quality: Excellent. ABDOMEN: Lung bases: Mild basilar atelectasis. Lung bases are otherwise clear. Mild coronary vascular calcific ations. Heart size is normal. Solid organs: Liver and spleen are normal in size. Gallbladder demonstrates a few radiopaque gallst ones. No wall thickening or surrounding inflammation. Pancreas is normal in contours. No adrenal no dules. Kidneys are normal in size, without hydronephrosis or nephrolithiasis. Peritoneum and bowel: Unenhanced bowel loops demonstrate normal wall thickness and caliber. No free fluid or air. Nodes and vessels: No retroperitoneal or mesenteric adenopathy by size criteria. Aorta and inferior vena cava are normal in caliber. Miscellaneous: No ventral hernias. PELVIS: Genitourinary: Bladder wall thickness is normal. Miscellaneous: No inguinal hernias or adenopathy. Bones: No suspicious bony lesions. Degenerative changes with grade 1 anterolisthesis of L4 on L5. N o vertebral body compression fractures. IMPRESSION: No acute intra-abdominal/pelvic abnormality. Cholelithiasis. Agree with preliminary report. Reviewed by: Javi Dang DO on 09/18/2021 6:59 AM HUNTER Approved by: Javi Dang DO on 09/18/2021 6:59 AM HUNTER Station ID: [id number]
== END 2021-09-18 05:50 | disposition home or self-care (01) ==
LOC: ED 00:22
DX: M54.50 Low back pain, unspecified (principal); M25.552 Pain in left hip
CPT/HCPCS: 36415; 74176; 80048; 85025; 99284; A9270

== ENCOUNTER 2021-12-09 10:51 | Outpatient (CLI) | payer MEDICARE ==
--- NOTE | 2021-12-09 11:52 | XRAY Report ---
PROCEDURE: Cervical Spine 2 View INDICATIONS: NECK PAIN TECHNIQUE: 3 view(s) of the cervical spine were acquired. COMPARISON: None. FINDINGS: Bones: Slight reversal of the normal cervical lordosis. There is trace anterolisthesis of C2 on C3, C 3 and C4. Moderate spondylosis, with most severe disc space height loss at C5-C6 and C6-C7. No acute appearing fracture. Normal C1 on C2 alignment on the odontoid view. Soft tissues: No prevertebral soft tissue swelling. IMPRESSION: Moderate spondylosis, worst in the lower cervical spine. Multilevel trace spondylolisthe sis. Consider MRI if necessary to further evaluate. Reviewed by: Felix Mccarty MD on 12/09/2021 11:50 AM PDT Approved by: Felix Mccarty MD on 12/09/2021 11:50 AM PDT Station ID: [id number]
== END 2021-12-09 10:52 | disposition home or self-care (01) ==
LOC: DI 10:51
PROVIDERS: ATTEND Family Medicine
DX: M47.812 Spondylosis without myelopathy or radiculopathy, cervical region (principal); M43.12 Spondylolisthesis, cervical region

== ENCOUNTER 2022-07-22 11:20 | Outpatient (CLI) | payer MEDICARE ==
--- NOTE | 2022-07-25 09:24 | Mammography Report ---
BILATERAL DIGITAL SCREENING MAMMOGRAM 3D/2D: 07/22/2022 CLINICAL: Routine screening. Comparison is made to exams dated: 07/01/2021 mammogram, 05/20/2020 mammogram, 04/30/2019 mammogram, 04/20 mammogram, and 12/26/2016 mammogram - [facility]. There are scattered areas of fibroglandular density in both breasts (category b / 25%-50% glandular t issue). No significant masses, calcifications, or other findings are seen in either breast. There has been no significant interval change. IMPRESSION: NEGATIVE There is no mammographic evidence of malignancy. A 1 year screening mammogram is recommended. Based on the Tyrer Cuzick model (a risk assessment model) the patients lifetime risk is 3.2% and her 10 year risk is 2.2%. According to the ACR, ACS, and NCCN guidelines, an annual breast MRI exam iban g with mammogram is recommended if the patients lifetime risk is 20% or greater. This exam was interpreted at Station ID: [id number]. NOTE: For mammograms, a report in lay terms will be sent to the patient. Approximately 15% of breast malignancies will not be visualized mammographically. In the management of a palpable breast mass, a negative mammogram must not discourage biopsy of a clinically suspicious lesion. Electronically Signed By: Alessio richter/lisa:07/22/2022 13:00:52 letter sent: No_Letter ACR BI-RADS Category 1: Negative 3341F PARENCHYMAL PATTERN: (A) - The breast(s) demonstrate(s) scattered fibroglandular densities. BI-RADS CATEGORY: (1) - 1 Mammogram [id number] 1 year screening LATERALITY: (B)
== END 2022-07-22 11:21 | disposition home or self-care (01) ==
LOC: DI 11:20
DX: Z12.31 Encounter for screening mammogram for malignant neoplasm of breast (principal)

== ENCOUNTER 2022-08-10 10:45 | Outpatient (CLI) | payer MEDICARE ==
--- NOTE | 2022-08-10 14:56 | DEXA Report ---
PROCEDURE: Dexa Spine and/or Hip INDICATIONS: POST MENOPAUSAL, HIST OF TOBACCO USE TECHNIQUE: Dual energy x-ray absorptiometry (DXA) was performed on a Woto System. Regions measur ed are the AP Spine, femoral neck, and if needed forearm. COMPARISON: DEXA 08/09/2021 FINDINGS: Lumbar Spine: Bone Mineral Density 0.964 g/cm/cm,T score -1.8. There has been no statistically significant change in bone mineral density since the prior study. Left Femoral Neck: Bone Mineral Density 0.621 g/cm/cm, T score -3.0. There has been no statistically significant change in bone mineral density since the prior study. Left Hip: Bone Mineral Density 0.596 g/cm/cm,T score -3.3. There has been no statistically significant change i n bone mineral density since the prior study. (T score greater or equal to -1.0: NORMAL) (T score from -1.1 to -2.4: OSTEOPENIA) (T score less than or equal to -2.5 to: OSTEOPOROSIS) Impression: By WHO criteria, this patient has osteoporosis. Bone mineral density has not significantly changed when compared to the prior DEXA from 08/09/2021. Patients with diagnosis of osteoporosis or osteopenia should have regular bone mineral density assess ment. For those eligible for Medicare, routine testing is allowed once every 2 years. Testing frequ ency can be increased for patients who have rapidly progressing disease or for those who are receivin g medical therapy to restore bone mass. Reviewed by: Dariusz Laughlin MD on 08/10/2022 2:55 PM PDT Approved by: Dariusz Laughlin MD on 08/10/2022 2:55 PM PDT Station ID: [id number]
== END 2022-08-10 10:46 | disposition home or self-care (01) ==
LOC: DI 10:45
PROVIDERS: ATTEND Physician Assistant Medical
DX: M81.0 Age-related osteoporosis without current pathological fracture (principal); Z78.0 Asymptomatic menopausal state

== ENCOUNTER 2022-08-18 09:16 | Outpatient (CLI) | payer MEDICARE ==
[2022-08-18 09:27] LABS: BASOPHILS # (AUTO) 0.1 10^3/uL (0.0-0.1); BASOPHILS % (AUTO) 1.1 %; EOSINOPHILS # (AUTO) 0.1 10^3/uL (0.0-0.7); EOSINOPHILS % (AUTO) 2.4 %; HCT - HEMATOCRIT 43.6 % (37.0-47.0); HGB - HEMOGLOBIN 14.2 g/dL (12.0-16.0); LYMPHOCYTES % (AUTO) 44.5 %; MEAN CORPUSCULAR HEMOGLOBIN 30.8 pg (27.0-31.0); MEAN CORPUSCULAR HGB CONC 32.6 g/dL (32.0-36.0); MEAN CORPUSCULAR VOLUME 94.6 fL (81.0-99.0); MEAN PLATELET VOLUME 9.5 fL (7.9-10.8); MONOCYTES # (AUTO) 0.4 10^3/uL (0.0-1.0); MONOCYTES % (AUTO) 7.9 %; NEUTROPHILS % (AUTO) 43.9 %; PLT - PLATELET COUNT 238 10^3/uL (130-450); RED BLOOD COUNT 4.61 10^6/uL (4.20-5.40); WHITE BLOOD COUNT 4.6 x10^3/uL (4.8-10.8)
[2022-08-18 10:00] LABS: ALBUMIN 4.2 g/dL (3.2-5.5); ALBUMIN/GLOBULIN RATIO 1.4 (1.0-2.2); ALKALINE PHOSPHATASE 56 IU/L (42-121); ALT ALANINE AMINOTRANSFERASE 20 IU/L (10-60); AST ASPARTATE AMINOTRANSFERASE 22 IU/L (10-42); BILIRUBIN,TOTAL 1.1 mg/dL (0.2-1.0); BUN - BLOOD UREA NITROGEN 18 mg/dL (6-20); CALCIUM 8.9 mg/dL (8.5-10.3); CARBON DIOXIDE - CO2 28 mmol/L (21-32); CHLORIDE 105 mmol/L (101-111); CHOL/HDL RATIO 2.7 (<4.4); CHOLESTEROL 198 mg/dL; CREATININE 0.7 mg/dL (0.4-1.0); GFR - MDRD 82 (>89); GLUCOSE 107 mg/dL (70-100); HDL CHOLESTEROL 74 mg/dL; POTASSIUM 4.3 mmol/L (3.5-5.0); SODIUM 139 mmol/L (135-145); TOTAL PROTEIN 7.2 g/dL (6.7-8.2); TRIGLYCERIDES 38 mg/dL
== END 2022-08-18 09:17 | disposition home or self-care (01) ==
LOC: LAB 09:16
PROVIDERS: ATTEND Physician Assistant Medical
DX: E78.5 Hyperlipidemia, unspecified (principal); M81.0 Age-related osteoporosis without current pathological fracture; M25.552 Pain in left hip
CPT/HCPCS: 36415; 80053; 80061; 82306; 83721; 85025

== ENCOUNTER 2022-08-24 11:17 | Outpatient (CLI) | payer MEDICARE ==
--- NOTE | 2022-08-24 15:14 | CT Report ---
PROCEDURE: Low Dose Lung Cancer Screen INDICATIONS: HIST OF TOBACCO USE TECHNIQUE: Noncontrast low-dose axial images were acquired from the pulmonary apices to the posterior costophren ic angles. Multiplanar MIP reformats were then reconstructed. For radiation dose reduction, the follo wing was used: automated exposure control, adjustment of mA and/or kV according to patient size. COMPARISON: 08/24/2021 FINDINGS: Image quality: Excellent. Prior cancer history: Unsure. Lungs and pleura: No pleural effusions. No pneumothorax. No new suspicious pulmonary nodules. Severa l tiny left upper lobe and lingular nodules too small to measure, stable in size and extent. Right lo wer lobe calcified granuloma. Central and peripheral airways are normal caliber without bronchial wal l thickening or bronchiectasis. Mediastinum: Heart size is normal with mild coronary artery calcification. No pericardial effusions. No mediastinal adenopathy by size criteria. No large vessel abnormality. No anterior or posterior med iastinal mass. Normal esophagus without hiatal hernia Chest wall and lower neck: Thyroid is unremarkable. No axillary or supraclavicular adenopathy by size . Bones: No aggressive osseous abnormality. Upper Abdomen: A few calcified gallstones in the gallbladder fundus. Mild atherosclerotic calcificati on. IMPRESSION: Lung RAD: 2 - Benign. Recommendation: Continue annual screening in 12 Months with LDCT Non-Lung Significant Findings: None. Reviewed by: Melida Story MD on 08/24/2022 2:13 PM AKDT Approved by: Melida Story MD on 08/24/2022 2:13 PM AKDT Station ID: [id number]
== END 2022-08-24 11:18 | disposition home or self-care (01) ==
LOC: DI 11:17
PROVIDERS: ATTEND Physician Assistant Medical
DX: Z12.2 Encounter for screening for malignant neoplasm of respiratory organs (principal); Z87.891 Personal history of nicotine dependence

== ENCOUNTER 2023-07-24 11:15 | Outpatient (CLI) | payer MEDICARE ==
--- NOTE | 2023-07-25 10:11 | Mammography Report ---
BILATERAL DIGITAL SCREENING MAMMOGRAM 3D/2D: 07/24/2023 CLINICAL: Routine screening. Comparison is made to exams dated: 07/22/2022 mammogram, 07/01/2021 mammogram, 05/20/2020 mammogram, 04/30 mammogram, 04/20/2018 mammogram, and 12/26/2016 mammogram - [facility]. There are scattered areas of fibroglandular density in both breasts (category b / 25%-50% glandular t issue). No significant masses, calcifications, or other findings are seen in either breast. There has been no significant interval change. IMPRESSION: NEGATIVE There is no mammographic evidence of malignancy. A 1 year screening mammogram is recommended. Based on the Tyrer Cuzick model (a risk assessment model) the patient's lifetime risk is 3.0% and her 10 year risk is 2.2%. According to the ACR, ACS, and NCCN guidelines, an annual breast MRI exam iban g with mammogram is recommended if the patient's lifetime risk is 20% or greater. This exam was interpreted at Station ID: [id number]. NOTE: For mammograms, a report in lay terms will be sent to the patient. Approximately 15% of breast malignancies will not be visualized mammographically. In the management of a palpable breast mass, a negative mammogram must not discourage biopsy of a clinically suspicious lesion. Electronically Signed By: Michel morocho/lisa:07/24/2023 12:30:41 letter sent: No_Letter ACR BI-RADS Category 1: Negative 3341F PARENCHYMAL PATTERN: (A) - The breast(s) demonstrate(s) scattered fibroglandular densities. BI-RADS CATEGORY: (1) - 1 RECOMMENDATION: (ANNUAL) - Recommend routine annual screening mammography. [id number] 1 year screening LATERALITY: (B)
== END 2023-07-24 11:16 | disposition home or self-care (01) ==
LOC: DI 11:15
DX: Z12.31 Encounter for screening mammogram for malignant neoplasm of breast (principal); R92.323 Mammographic fibroglandular density, bilateral breasts

== ENCOUNTER 2023-08-25 11:51 | Outpatient (CLI) | payer MEDICARE ==
--- NOTE | 2023-08-25 12:55 | CT Report ---
PROCEDURE: Lung Cancer Screen INDICATIONS: HIST OF TOBACCO USE TECHNIQUE: A CT scan of the chest was performed. Intravenous contrast media was not administered. Images were re corded and evaluated at appropriate window settings. Reformats: axial MIP of the chest, coronal and s agittal. For radiation dose reduction, the following was used: automated exposure control, adjustment of mA and/or kV according to patient size. COMPARISON: 08/24/2022 FINDINGS: Image quality: Excellent. Prior cancer history: Unsure. Lungs and pleura: No pleural effusions. No pneumothorax. Stable right lower lobe calcified granuloma . Stable pulmonary micronodules. Moderate centrilobular and mild paraseptal emphysema. Mediastinum: Heart size is normal. No pericardial effusion. No large vessel abnormality. No mediastin al adenopathy by size criteria. Three vessel coronary artery calcifications. Chest wall and lower neck: Thyroid is unremarkable. No axillary or supraclavicular adenopathy by size . Bones: No aggressive osseous abnormality. Upper Abdomen: Cholelithiasis. IMPRESSION: Lung RAD: 2 - Benign. Recommendation: Continue annual screening in 12 Months with LDCT Non-Lung Significant Findings: Coronary Arterial Calcification - Moderate or Severe. Consider cardiol ogy referral. Reviewed by: Mahad Thrasher MD on 08/25/2023 12:53 PM PDT Approved by: Mahad Thrasher MD on 08/25/2023 12:53 PM PDT Station ID: [id number]
== END 2023-08-25 11:52 | disposition home or self-care (01) ==
LOC: DI 11:51
PROVIDERS: ATTEND Physician Assistant Medical
DX: Z12.2 Encounter for screening for malignant neoplasm of respiratory organs (principal); Z87.891 Personal history of nicotine dependence; I25.10 Atherosclerotic heart disease of native coronary artery without angina pectoris; J43.2 Centrilobular emphysema